=== PATIENT | male | born 1975 | race Caucasian/White ===

== ENCOUNTER 2017-06-01 07:21 | Emergency (ER) | payer MEDICAID, OTHER ==
[~2017-06-01] VITALS: Ht 167.6 cm; Wt 100.0 kg
[~2017-06-01 07:21] MED LIST: BACT800T5 PO; CEPH500; ERYT.5%O RIGHT EYE; LORTA5 PO; Z.0.NO CURRENT MEDS
[2017-06-01 07:23] VITALS: BP 139/86; PULSE 86; RESP 20; TEMP 98; O2SAT 96
[2017-06-01] MEDS ORDERED: MORPHINE SULFATE 4 MG/ML INJ IV PUSH PRN (07:45)
[2017-06-01] MEDS ORDERED: ONDANSETRON HCL 4 MG/2 ML VIAL IV PUSH ONE (07:45)
[2017-06-01 08:00] VITALS: BP 165/78; PULSE 74; RESP 17; O2SAT 100
--- NOTE | 2017-06-01 08:08 | RADRPT ---
EXAM DATE/TIME: 06/01/2017 07:44 [facility] COMPARISON: No previous studies available for comparison. INDICATIONS : Left ankle pain after fork lift ran over ankle this morning. MEDICAL HISTORY : None. SURGICAL HISTORY : None. ENCOUNTER: Initial ACUITY: 1 day PAIN SCORE: 10/10 LOCATION: Left lateral ankle. FINDINGS: Three view exam was performed of the left ankle. The bony structures are in normal alignment. No ev idence of fracture, dislocation, or soft tissue swelling. The ankle mortise is intact. No radiopaqu e foreign bodies are seen. Bony mineralization is normal. CONCLUSION: No acute disease. Seth Geiger Jr., MD on June 01, 2017 at 8:06 Board Certified Radiologist. This report was verified electronically.
--- NOTE | 2017-06-01 08:08 | RADRPT ---
EXAM DATE/TIME: 06/01/2017 07:43 [facility] COMPARISON: No previous studies available for comparison. INDICATIONS : Left leg pain after fork lift ran over leg this morning. MEDICAL HISTORY : None. SURGICAL HISTORY : None. ENCOUNTER: Initial ACUITY: 1 day PAIN SCORE: 10/10 LOCATION: Left lateral tibia near the knee. FINDINGS: Two view examination of the left tibia demonstrates no evidence of fracture or dislocation. There is a bipartite patella. As best appreciated on the frontal projection. No joint effusion. Bony minerali zation is normal. The soft tissue structures are intact. CONCLUSION: No acute abnormality. Seth Geiger Jr., MD on June 01, 2017 at 8:04 Board Certified Radiologist. This report was verified electronically.
[2017-06-01] MEDS ORDERED: NORC5TAB PO (08:25)
--- NOTE | 2017-06-01 08:25 | PD ---
HPI . Ankle injury Chief Complaint: Injury Time Seen by Provider: 07:34 Travel History International Travel<30 days: No Contact w/Intl Traveler<30days: No Traveled to known affect area: No History of Present Illness HPI Patient presents with a chief complaint of left ankle injury. The injury occurred just prior to presentation. He was inadvertently run over by a forklift. This probably caused a twisting motion to the left ankle. He comes in complaining with left ankle pain that radiates up to the knee. Pain is rated 10/10. Pain is exacerbated by trying to walk. He has been unable to ambulate on his leg since the accident. [facility] Past Medical History Medical History: Denies Significant Hx Cardiovascular Problems: No Genitourinary: No Musculoskeletal: No Neurologic: No Reproductive: No Respiratory: No Past Surgical History Surgical History: No Previous Surgery Social History Alcohol Use: No Tobacco Use: No Substance Use: No Allergies-Medications (Allergen,Severity, Reaction): Coded Allergies: No Known Allergies (Verified , 01/08/06) Reported Meds & Prescriptions Reported Meds & Active Scripts Active Keflex 500 mg Cap (Cephalexin Monohydrate) 500 Mg Cap 500 Mg .XX QID 14 Days Bactrim DS (Sulfamethoxazole-Trimethoprim DS) 1 Tab Tab 1 Tab PO BID 14 Days Lortab 5/325 Tab (Hydrocodone-Acetaminophen) 1 Tab Tab 1 Tab PO Q4H PRN Review of Systems Except as stated in HPI: all other systems reviewed are Neg Musculoskeletal: Positive: Arthralgias, Limited ROM Physical Exam Narrative GENERAL: Awake and alert. SKIN: Warm and dry. Intact. HEAD: Normocephalic/atraumatic. EYES: Pupils are equal. Extraocular movements are intact. NECK: Normal range of motion. CARDIOVASCULAR: Regular rate and rhythm. RESPIRATORY: Nonlabored respirations. MUSCULOSKELETAL: Deformed-appearing left ankle. Diffuse tenderness to palpation. Ankle is stable. He does have full and equal distal pulses. Movement is intact distally. NEUROLOGICAL: Nonfocal. PSYCHIATRIC: Appropriate mood and affect. Data Data Last Documented VS Vital Signs Date Time Temp Pulse Resp B/P (MAP) Pulse Ox O2 Delivery O2 Flow Rate FiO2 06/01/17 07:23 98.0 86 20 139/86 (103) 96 Orders Orders Ankle, Complete (Crv2wkg) (06/01/17 07:34) Tibia/Fibula (Ap/Lat) (06/01/17 07:34) ^ Saline Lock (06/01/17 07:34) Ondansetron Inj (Zofran Inj) (06/01/17 07:45) Morphine Inj (Morphine Inj) (06/01/17 07:45) MDM Medical Decision Making Medical Screen Exam Complete: Yes Emergency Medical Condition: Yes Differential Diagnosis Differential diagnosis of extremity trauma includes but is not limited to fracture, sprain or strain, dislocation, contusion Narrative Course This patient presents with left ankle injury. The ankle appeared fractured. However, his x-ray is negative for fracture or dislocation. Last Impressions Tibia/Fibula X-Ray 06/01/17733 Signed Impressions: Service Date/Time: Thursday, June 01, 2017 07:43 - CONCLUSION: No acute abnormality. Seth Geiger Jr., MD Ankle X-Ray 06/01/17733 Signed Impressions: Service Date/Time: Thursday, June 01, 2017 07:44 - CONCLUSION: No acute disease. Seth Geiger Jr., MD The patient will be treated with [place] therapy. He will be given a prescription for [place] for pain. Diagnosis Primary Impression: Left ankle sprain Qualified Codes: S93.402A - Sprain of unspecified ligament of left ankle, initial encounter Additional Instructions: You will need to follow-up with your Workmen's Comp. doctor for further treatment until you are ready to return to work. Med/Other Pt SpecificInfo: Prescription(s) given Scripts Hydrocodone-Acetaminophen ([place]) 5 Mg-325 Mg Tab 1 TAB PO Q4H Y for PAIN, #12 TAB 0 Refills Prov: Yolanda Yee MD 06/01/17 Disposition: 01 DISCHARGE HOME Condition: Stable Yolanda Yee MD Jun 01, 2017 08:25
[2017-06-01] MEDS ORDERED: HYDROmorphone HCL PF 2 MG/ML VIAL IV PUSH ONE (08:30)
[2017-06-01 09:00] VITALS: BP 166/77; PULSE 64; RESP 17; O2SAT 96
[2017-06-01 09:24] VITALS: BP 125/61; PULSE 68; RESP 17; O2SAT 96
[2017-06-01 09:39] VITALS: BP 142/74
[2017-06-01] MEDS ORDERED: MORPHINE SULFATE 2 MG/ML INJ IV PUSH PRN (10:00)
== END 2017-06-01 09:55 | disposition home or self-care (01) ==
LOC: NEPE 07:21
DX: S93.402A Sprain of unspecified ligament of left ankle, initial encounter (principal); W31.82XA Contact with other commercial machinery, initial encounter
CPT/HCPCS: 73590; 73610; 96374; 96375; 99284; E0113; J1170; J2270; J2405